=== PATIENT | male | born 1955 | race Caucasian/White ===

== ENCOUNTER → 2017-02-03 | Outpatient (CLI) | payer OTHER ==
[~2017-02-03] MED LIST: ADULT LOW DOSE81 MG PO; BACTROBAN NASAL1 GM NS; CHLORHEXADINE; DYAZIDE 37.5-21 EACH PO; HIBICLENS120 ML TP; MULTIVITAMINS PO; TOPROL XL50 MG PO
== END ==
LOC: RAD 03:08
DX: R06.02 Shortness of breath (principal)

== ENCOUNTER → 2017-02-15 | Outpatient (CLI) | payer OTHER | LOC: RAD 03:39 | DX: R06.02 Shortness of breath (principal) ==

== ENCOUNTER → 2017-05-04 | Outpatient (CLI) | payer OTHER ==
--- NOTE | ~2017-05-04 | 2DMMODE ---
[facility] [address] [facility] [place] [address] 2 D/M-MODE ECHOCARDIOGRAM Name: ARLETH ROBERT Room #: [facility]#: [id number] Admission: Attend Phys: Delmar Kendrick MD Discharge: Date of : 51 Date of Service: 05/04/17 1643 Report #: [id number] THIS REPORT FOR: //name// APPROVED REPORT Study performed: 05/04/2017 14:39:26 EXAM: Comprehensive 2D, Doppler, and color-flow Echocardiogram Patient Location: Out-Patient Room #: Echo lab Status: routine Other Information Study Quality: Adequate Indications Atrial flutter ablation. 2D Dimensions RVDd: 31.18 mm LVEF(%): 57.56 (>50%) IVSd: 10.54 (7-11mm) LVOT Diam: 21.88 (18-24mm) LVDd: 40.00 mm PWd: 10.91 (7-11mm) Ascending Ao: 30.63 (22-36mm) LVDs: 28.06 (25-40mm) Aortic Root: 30.07 mm Palencia's LVEF: 57.56 % Volumes Left Atrial Volume (Systole) Single Plane 4CH: 26.01 mL Single Plane 2CH: 41.83 mL LA ESV Index: 19.00 mL/m2 Aortic Valve AoV Peak Brooks.: 1.05 m/s AO Peak Gr.: 4.38 mmHg LVOT Max P.61 mmHg LVOT Max V: 0.81 m/s FRANK Vmax: 2.90 cm2 Mitral Valve E/A Ratio: 1.1 MV Decel. Time: 234.95 ms MV E Max Brooks.: 0.55 m/s MV A Brooks.: 0.51 m/s MV PHT: 68.13 ms IVRT: 119.95 ms [facility] [place] [address] 2 D/M-MODE ECHOCARDIOGRAM Name: ARLETH ROBERT Room #: [facility]#: [id number] Admission: Attend Phys: Delmar Kendrick MD Discharge: Date of : 51 Date of Service: 05/04/17 1643 Report #: [id number] Pulmonary Valve PV Peak Brooks.: 1.03 m/s PV Peak Gr.: 4.20 mmHg Pulmonary Vein P Vein S: 0.44 m/s P Vein A: 0.22 m/s P Vein D: 0.38 m/s P Vein A Dur.: 106.1 msec P Vein S/D Ratio: 1.16 Left Ventricle The left ventricle is normal size. There is normal left ventricular wall thickness. The left ventricular systolic function is normal. The left ventricular ejection fraction is within the normal range. LVEF is 55-60%. Grade II - pseudonormal filling dynamics. Right Ventricle The right ventricle is normal size. The right ventricular systolic function is normal. Atria The left atrium size is normal. The right atrium size is normal. Aortic Valve The aortic valve is normal in structure. No aortic regurgitation is present. There is no aortic valvular stenosis. Mitral Valve The mitral valve is normal in structure. Trace mitral regurgitation. No evidence of mitral valve stenosis. Tricuspid Valve The tricuspid valve is normal in structure. There is trace tricuspid regurgitation. The right atrial pressure is estimated at mmHg. There is no pulmonary hypertension. Pulmonic Valve The pulmonary valve is normal in structure. Trace to mild pulmonic regurgitation. Great Vessels The aortic root is normal in size. IVC is not visualized. Pericardium There is no pericardial effusion. [address] [address] 2 D/M-MODE ECHOCARDIOGRAM Name: ARLETH ROBERT Delmy Room #: [facility]#: [id number] Admission: Attend Phys: Delmar Kendrick MD Discharge: Date of : 51 Date of Service: 05/04/17 1643 Report #: [id number] <Conclusion> The left ventricle is normal size. There is normal left ventricular wall thickness. The left ventricular systolic function is normal. The right ventricle is normal size. The left atrium size is normal. The right atrium size is normal. The aortic valve is normal in structure. Trace mitral regurgitation. There is trace tricuspid regurgitation. The right atrial pressure is estimated at mmHg. There is no pulmonary hypertension. <ELECTRONICALLY SIGNED> By: Delmar Kendrick MD 05/04/171642 42 42 Delmar Kendrick MD /INF
== END ==
LOC: CV 07:08
DX: I25.10 Atherosclerotic heart disease of native coronary artery without angina pectoris (principal)

== ENCOUNTER → 2018-05-24 | Outpatient (CLI) | payer OTHER | LOC: NUC 07:51 | DX: I25.10 Atherosclerotic heart disease of native coronary artery without angina pectoris (principal); I10 Essential (primary) hypertension; E78.5 Hyperlipidemia, unspecified ==

== ENCOUNTER 2018-12-18 09:14 | Emergency (ER) | payer OTHER ==
[~2018-12-18] VITALS: Ht 167.6 cm; Wt 74.8 kg
[2018-12-18 10:59] LABS: URINE BILIRUBIN NEGATIVE (Negative); URINE BLOOD NEGATIVE (Negative); URINE CLARITY CLEAR; URINE COLOR YELLOW; URINE GLUCOSE-RANDOM* NEGATIVE (Negative); URINE KETONES NEGATIVE (Negative); URINE LEUKOCYTES-REFLEX NEGATIVE (Negative); URINE NITRITE-REFLEX NEGATIVE (Negative); URINE PROTEIN (DIPSTICK) NEGATIVE (Negative); URINE SPECIFIC GRAVITY 1.015 (1.005-1.035); URINE UROBILINOGEN 0.2 E.U./dl (0.2-1.0)
[2018-12-18 11:08] LABS: ABSOLUTE NEUTROPHILS 5.9 thou/uL (1.4-8.2); BASOPHILS 0.7 % (0.0-2.0); EOSINOPHILS 1.5 % (0.0-3.0); HEMATOCRIT 46.1 % (42.0-52.0); HEMOGLOBIN 16.2 gm/dL (14.0-18.0); LYMPHOCYTES 12.9 % (24.0-44.0); MCH 34.7 pg (26.0-34.0); MCHC 35.2 g/dL (28.0-37.0); MCV 98.6 fL (80.0-100.0); MONOCYTES 7.9 % (1.0-8.0); PLATELET COUNT 274 thou/uL (150-400); RBC 4.68 mil/uL (4.50-6.00); RDW 13.2 % (10.5-14.5); WBC 7.6 thou/uL (4.0-11.0)
[2018-12-18 11:21] LABS: CALCIUM 11.2 mg/dL (8.5-10.1); CREATININE 1.2 mg/dL (0.7-1.3); POTASSIUM 4.1 mmol/L (3.5-5.1)
[2018-12-18] MEDS ORDERED: OSELB75 PO (11:50)
[2018-12-18 13:03] VITALS: BP 106/84
== END 2018-12-18 13:03 | disposition home or self-care (01) ==
LOC: ER 09:14
PROVIDERS: Emergency Medicine
DX: M54.5 Low back pain (principal); G89.29 Other chronic pain; E78.5 Hyperlipidemia, unspecified; Z95.5 Presence of coronary angioplasty implant and graft; Z87.442 Personal history of urinary calculi

== ENCOUNTER → 2019-10-24 | Outpatient (CLI) | payer OTHER ==
[~2019-10-24] MED LIST changes: +OSELB75 PO
== END ==
LOC: SJCVCIMAG 12:56
DX: I48.92 Unspecified atrial flutter (principal); I48.91 Unspecified atrial fibrillation; I25.810 Atherosclerosis of coronary artery bypass graft(s) without angina pectoris; I10 Essential (primary) hypertension; E78.00 Pure hypercholesterolemia, unspecified; R31.9 Hematuria, unspecified; J45.909 Unspecified asthma, uncomplicated; Z79.899 Other long term (current) drug therapy; Z95.1 Presence of aortocoronary bypass graft; Z79.82 Long term (current) use of aspirin; Z88.8 Allergy status to other drugs, medicaments and biological substances

== ENCOUNTER → 2020-02-03 | Outpatient (CLI) | payer OTHER | LOC: SJCVC 11:16 | DX: R94.31 Abnormal electrocardiogram [ECG] [EKG] (principal); I10 Essential (primary) hypertension; I25.10 Atherosclerotic heart disease of native coronary artery without angina pectoris; I48.92 Unspecified atrial flutter; E78.00 Pure hypercholesterolemia, unspecified; Z79.82 Long term (current) use of aspirin; Z79.899 Other long term (current) drug therapy ==

== ENCOUNTER → 2020-05-14 | Outpatient (CLI) | payer OTHER | LOC: SJCVC 15:24 | PROVIDERS: ATTEND Internal Medicine Cardiovascular Disease | DX: E78.00 Pure hypercholesterolemia, unspecified (principal); J45.909 Unspecified asthma, uncomplicated; I10 Essential (primary) hypertension; I48.0 Paroxysmal atrial fibrillation; I25.10 Atherosclerotic heart disease of native coronary artery without angina pectoris; Z68.28 Body mass index [BMI] 28.0-28.9, adult; Z79.899 Other long term (current) drug therapy ==

== ENCOUNTER → 2020-07-01 | Outpatient (CLI) | payer OTHER | LOC: SJCVC 13:03 | PROVIDERS: ATTEND Internal Medicine Cardiovascular Disease | DX: I47.1 Supraventricular tachycardia (principal); R94.31 Abnormal electrocardiogram [ECG] [EKG]; I25.810 Atherosclerosis of coronary artery bypass graft(s) without angina pectoris; I48.0 Paroxysmal atrial fibrillation; I10 Essential (primary) hypertension; E78.00 Pure hypercholesterolemia, unspecified; D64.9 Anemia, unspecified; J45.909 Unspecified asthma, uncomplicated; Z95.1 Presence of aortocoronary bypass graft; Z79.899 Other long term (current) drug therapy; Z82.49 Family history of ischemic heart disease and other diseases of the circulatory system ==

== ENCOUNTER → 2020-07-08 | Outpatient (CLI) | payer OTHER | LOC: SJCVC 09:42 | PROVIDERS: ATTEND Internal Medicine Cardiovascular Disease | DX: I48.0 Paroxysmal atrial fibrillation (principal); I10 Essential (primary) hypertension; I25.10 Atherosclerotic heart disease of native coronary artery without angina pectoris; E78.00 Pure hypercholesterolemia, unspecified; Z79.899 Other long term (current) drug therapy ==

== ENCOUNTER → 2020-08-18 | Outpatient (CLI) | payer OTHER | LOC: SJCVC 09:59 | PROVIDERS: ATTEND Internal Medicine Cardiovascular Disease | DX: E78.00 Pure hypercholesterolemia, unspecified (principal); J45.909 Unspecified asthma, uncomplicated; I25.10 Atherosclerotic heart disease of native coronary artery without angina pectoris; I48.0 Paroxysmal atrial fibrillation; Z68.28 Body mass index [BMI] 28.0-28.9, adult; Z79.899 Other long term (current) drug therapy ==

== ENCOUNTER → 2020-09-08 | Outpatient (CLI) | payer OTHER | LOC: SJCVCIMAG 08-25 06:43 | PROVIDERS: ATTEND Internal Medicine Cardiovascular Disease | DX: I45.10 Unspecified right bundle-branch block (principal); I49.3 Ventricular premature depolarization; I49.1 Atrial premature depolarization; I25.10 Atherosclerotic heart disease of native coronary artery without angina pectoris; I10 Essential (primary) hypertension; E78.00 Pure hypercholesterolemia, unspecified; D64.9 Anemia, unspecified; E78.1 Pure hyperglyceridemia; I48.92 Unspecified atrial flutter; Z95.1 Presence of aortocoronary bypass graft; Z79.899 Other long term (current) drug therapy ==

== ENCOUNTER → 2020-09-29 | Outpatient (CLI) | payer OTHER | LOC: SJCVC 08:51 | PROVIDERS: ATTEND Internal Medicine Cardiovascular Disease | DX: I25.10 Atherosclerotic heart disease of native coronary artery without angina pectoris (principal); J45.909 Unspecified asthma, uncomplicated; E78.5 Hyperlipidemia, unspecified; I10 Essential (primary) hypertension; I48.0 Paroxysmal atrial fibrillation; Z68.28 Body mass index [BMI] 28.0-28.9, adult; Z79.899 Other long term (current) drug therapy ==

== ENCOUNTER → 2020-12-08 | Outpatient (CLI) | payer OTHER | LOC: SJCVC 11:05 | PROVIDERS: ATTEND Internal Medicine Cardiovascular Disease | DX: D50.9 Iron deficiency anemia, unspecified (principal); E03.9 Hypothyroidism, unspecified; J45.909 Unspecified asthma, uncomplicated; J44.9 Chronic obstructive pulmonary disease, unspecified; I25.10 Atherosclerotic heart disease of native coronary artery without angina pectoris; I48.0 Paroxysmal atrial fibrillation; I12.9 Hypertensive chronic kidney disease with stage 1 through stage 4 chronic kidney disease, or unspecified chronic kidney disease; N18.30 Chronic kidney disease, stage 3 unspecified; E78.5 Hyperlipidemia, unspecified ==

== ENCOUNTER → 2021-03-10 | Outpatient (CLI) | payer OTHER | LOC: SJCVC 11:25 | PROVIDERS: ATTEND Internal Medicine Cardiovascular Disease | DX: R94.31 Abnormal electrocardiogram [ECG] [EKG] (principal); I49.1 Atrial premature depolarization; I48.0 Paroxysmal atrial fibrillation; I25.10 Atherosclerotic heart disease of native coronary artery without angina pectoris; I10 Essential (primary) hypertension; E78.00 Pure hypercholesterolemia, unspecified; D64.9 Anemia, unspecified; R60.9 Edema, unspecified; I48.92 Unspecified atrial flutter; J45.909 Unspecified asthma, uncomplicated; K25.9 Gastric ulcer, unspecified as acute or chronic, without hemorrhage or perforation; G47.33 Obstructive sleep apnea (adult) (pediatric); Z95.1 Presence of aortocoronary bypass graft; Z88.8 Allergy status to other drugs, medicaments and biological substances; Z79.899 Other long term (current) drug therapy; Z82.49 Family history of ischemic heart disease and other diseases of the circulatory system ==

== ENCOUNTER → 2021-05-13 | Outpatient (CLI) | payer OTHER | LOC: SJCVC 09:05 | PROVIDERS: ATTEND Internal Medicine Cardiovascular Disease | DX: E78.00 Pure hypercholesterolemia, unspecified (principal); E03.9 Hypothyroidism, unspecified; I25.10 Atherosclerotic heart disease of native coronary artery without angina pectoris; I48.0 Paroxysmal atrial fibrillation; M19.042 Primary osteoarthritis, left hand; M19.041 Primary osteoarthritis, right hand; M16.11 Unilateral primary osteoarthritis, right hip; E78.5 Hyperlipidemia, unspecified; I12.9 Hypertensive chronic kidney disease with stage 1 through stage 4 chronic kidney disease, or unspecified chronic kidney disease; N18.30 Chronic kidney disease, stage 3 unspecified; Z68.28 Body mass index [BMI] 28.0-28.9, adult; Z79.899 Other long term (current) drug therapy ==

== ENCOUNTER → 2021-05-26 | Outpatient (CLI) | payer OTHER ==
[~2021-05-26] MED LIST changes: +ATENOLOL 50MG T50 M1 PO; +CALCIUM500 MG PO; +CLARITIN10 MG PO; +FLAX SEED OIL1 EACH PO; +LEVOTHYROXINE50 MCG PO; +MULTI VITAMIN1 EACH PO; +PROAIR HFA8.5 GM INH; +PROTONIX40 M2 PO; +REPATHA PU420 MG/3.5; +TIZANIDINE HCL 22 M1 PO; +TRELEGY ELLIPT1 EAC1 INH; +TRIAMTERENE/HCT1 CA1 PO; +TYLENOL ARTHRI650 MG PO; +VITAMIN D350 MC3 PO; +XARELTO20 MG PO
== END ==
LOC: SJCVC 10:49
PROVIDERS: ATTEND Internal Medicine Cardiovascular Disease
DX: I25.10 Atherosclerotic heart disease of native coronary artery without angina pectoris (principal); E03.9 Hypothyroidism, unspecified; I48.0 Paroxysmal atrial fibrillation; M16.0 Bilateral primary osteoarthritis of hip; I12.9 Hypertensive chronic kidney disease with stage 1 through stage 4 chronic kidney disease, or unspecified chronic kidney disease; N18.30 Chronic kidney disease, stage 3 unspecified; Z79.899 Other long term (current) drug therapy

== ENCOUNTER 2021-06-01 06:04 | Day surgery (SDC) | payer OTHER ==
[~2021-06-01] VITALS: Ht 160 cm; Wt 83.9 kg
--- NOTE | ~2021-06-01 | O ---
[facility] [place] [address] OPERATIVE REPORT Name: ARLETH ROBERT Room #: [facility].#: [id number] Admission: 06/01/21 Attend Phys: Albert Guillen MD Discharge: 06/01/21 Date of : 51 Report #: [id number] THIS REPORT FOR: cc: Jose Francisco Portillo,Albert Lopez MD ~ cc: Jose Francisco Portillo MD DATE OF SERVICE: 06/01/2021 PREOPERATIVE DIAGNOSIS: Symptomatic left inguinal hernia. POSTOPERATIVE DIAGNOSES: Symptomatic left inguinal, indirect hernia sac found and cord lipoma. PROCEDURE PERFORMED: Laparoscopic properitoneal repair of left inguinal hernia with mesh. SURGEON: Albert Guillen MD ANESTHESIA: General anesthesia. OVER HAULER HELPER: None. ESTIMATED BLOOD LOSS: 5 mL. DESCRIPTION OF PROCEDURE: With the patient under general anesthesia, Virgen catheter was placed. The nurses had difficulty placing the regular 16-Hong Konger. I placed a 14-H[place] Konger coude tip without difficulty. Very small amount of blood that was seen mixed with urine. After that, the urine was clear. The abdomen was then prepped and draped in sterile fashion. The patient received preoperative IV antibiotics. A timeout was performed. A 0.25% Marcaine was used to anesthetize the skin lateral to the umbilicus. A transverse incision was made left of the umbilicus. Incision carried through the skin and subcutaneous tissue. The anterior fascia was identified. The anterior fascia was incised transversely. Rectus muscle was spread between the fibers. Posterior fascia was identified. The space between the muscle and the posterior fascia was bluntly dissected with fingertip. A balloon trocar was placed through the same space. CO2 was placed. The properitoneal space was easily identified. A 5 mm trocar was placed about 2 inches below the umbilicus. The properitoneal space was opened up. The inferior epigastric vessels were identified. The areolar tissue was free and the pubic bones were isolated. Bladder was not disturbed. The patient did not have a direct defect. A second 5 mm trocar was placed about an inch and half below the first 5 mm trocar. This was placed slightly to the right of the midline. The patient did have an indirect hernia sac found lateral to the inferior epigastric vessel. The [address] [address] OPERATIVE REPORT Name: ARLETH ROBERT Room #: [facility].#: [id number] Admission: 06/01/21 Attend Phys: Albert Guillen MD Discharge: 06/01/21 Date of : 51 Report #: [id number] was fairly thin. The sac was elongated and reduced from the canal. This was from the cord structure. There was a small defect in the hernia sac peritoneum. The abdominal aorta did travel in the abdomen. There is a lipoma that was also reduced. The internal ring was isolated. The cord structures were isolated. A large 3DMax lightweight mesh was then placed in the properitoneal space. This was then opened up. This covered the internal ring and the lateral wall, also then the medial aspect of the mesh was placed under the pubic bone and close to the midline. The mesh was tacked superolaterally with SorbaFix. The mesh was tacked inferomedially to Mian's ligament and then superomedially to the rectus muscle. CO2 was evacuated. The hernia sac was found and medially displaced from the mesh. The trocar was then removed. At the umbilical area, the posterior fascia was grasped with hemostat. Posterior fascia was opened and the peritoneum was opened releasing the intraabdominal air. The posterior fascia was closed with [id number] 0 Vicryl. Anterior fascia was closed with [id number] 0 Vicryl x2. Skin was irrigated. Skin was closed with 5-0 PDS. Steri-Strips were applied. Band-Aid was used for dressing. The patient tolerated the procedure well and was taken to recovery room. By: [id number] Albert Guillen MD /shyanne
[2021-06-01 06:51] LABS: HEMATOCRIT 41.7 % (42.0-52.0); HEMOGLOBIN 14.5 gm/dL (14.0-18.0)
[2021-06-01 06:55] LABS: CALCIUM 9.9 mg/dL (8.5-10.1); POTASSIUM 3.8 mmol/L (3.5-5.1)
[2021-06-01 07:05] VITALS: BP 124/79
[2021-06-01] MEDS ORDERED: HYDROCODON-ACE1 EAC7 PO (09:39)
[2021-06-01 09:59] VITALS: BP 124/79
== END 2021-06-01 10:35 | disposition home or self-care (01) ==
LOC: TBA 06:04 → OR 06:04
PROVIDERS: Anesthesiology; ATTEND Surgery
DX: K40.90 Unilateral inguinal hernia, without obstruction or gangrene, not specified as recurrent (principal); D17.6 Benign lipomatous neoplasm of spermatic cord; E78.5 Hyperlipidemia, unspecified; I25.2 Old myocardial infarction; K21.9 Gastro-esophageal reflux disease without esophagitis; Z98.890 Other specified postprocedural states; Z79.899 Other long term (current) drug therapy; Z20.822 Contact with and (suspected) exposure to COVID-19; Z87.442 Personal history of urinary calculi
CPT/HCPCS: 50010; 50101; 50411; 50455; 50507; 50555; 50848; 52265; 53065; 53307; 56525; 56526; 58574; 62110; 62900; 70005

== ENCOUNTER → 2021-07-07 | Outpatient (CLI) | payer OTHER ==
[~2021-07-07] MED LIST changes: +HYDROCODON-ACE1 EAC7 PO
== END ==
LOC: SJCVC 09:03
PROVIDERS: ATTEND Internal Medicine Cardiovascular Disease
DX: K25.4 Chronic or unspecified gastric ulcer with hemorrhage (principal); E78.00 Pure hypercholesterolemia, unspecified; E03.9 Hypothyroidism, unspecified; I25.10 Atherosclerotic heart disease of native coronary artery without angina pectoris; N18.9 Chronic kidney disease, unspecified; I12.9 Hypertensive chronic kidney disease with stage 1 through stage 4 chronic kidney disease, or unspecified chronic kidney disease; E78.5 Hyperlipidemia, unspecified; J44.9 Chronic obstructive pulmonary disease, unspecified; Z88.8 Allergy status to other drugs, medicaments and biological substances; Z95.1 Presence of aortocoronary bypass graft; Z72.89 Other problems related to lifestyle; Z79.899 Other long term (current) drug therapy

== ENCOUNTER → 2021-09-06 | Outpatient (CLI) | payer OTHER | LOC: SJCVC 10:34 | PROVIDERS: ATTEND Internal Medicine Cardiovascular Disease | DX: E78.00 Pure hypercholesterolemia, unspecified (principal); J45.909 Unspecified asthma, uncomplicated; I25.10 Atherosclerotic heart disease of native coronary artery without angina pectoris; I10 Essential (primary) hypertension; Z95.1 Presence of aortocoronary bypass graft; Z82.49 Family history of ischemic heart disease and other diseases of the circulatory system; Z72.89 Other problems related to lifestyle; Z88.8 Allergy status to other drugs, medicaments and biological substances; Z79.899 Other long term (current) drug therapy ==

== ENCOUNTER → 2021-09-16 | Outpatient (CLI) | payer OTHER | LOC: SJCVC 10:35 | PROVIDERS: ATTEND Internal Medicine Cardiovascular Disease | DX: R94.31 Abnormal electrocardiogram [ECG] [EKG] (principal); I25.10 Atherosclerotic heart disease of native coronary artery without angina pectoris; E78.00 Pure hypercholesterolemia, unspecified; E78.1 Pure hyperglyceridemia; I10 Essential (primary) hypertension; I65.23 Occlusion and stenosis of bilateral carotid arteries; Z82.49 Family history of ischemic heart disease and other diseases of the circulatory system; Z72.89 Other problems related to lifestyle; Z88.8 Allergy status to other drugs, medicaments and biological substances; Z79.899 Other long term (current) drug therapy ==